=== PATIENT | female | born 1985 | race Caucasian/White ===

== ENCOUNTER 2016-11-01 00:39 | Emergency (ER) | payer BC ==
[~2016-11-01 00:39] MED LIST: CIPRO PO; FIORICET1 TAB PO; NAPROSYN375 MG PO; NORCO 10/3251 TAB PO; NORVASC PO; TYLENOL #3 PO; ZOFRAN ODT4 MG SL
[2016-11-01] MEDS ORDERED: METFORMIN (00:57)
[2016-11-01] MEDS ORDERED: IMITREX (00:57)
== END 2016-11-01 01:52 | disposition home or self-care (01) ==
LOC: SED 00:39
DX: R19.7 Diarrhea, unspecified (principal); E11.9 Type 2 diabetes mellitus without complications
CPT/HCPCS: 99283